=== PATIENT | female | born 1965 | race Caucasian/White ===

== ENCOUNTER 2018-01-18 13:42 | Inpatient (IN) | payer MEDICAID ==
[~2018-01-18] VITALS: Ht 160 cm; Wt 89.5 kg
[2018-01-18 13:57] VITALS: Ht 160 cm; Wt 89.5 kg
[2018-01-18 14:30] LABS: BASOPHIL % 1.1 % (0-2); PLATELET COUNT 177 x10^3mcL (130-400); RED CELL DISTRIBUTION WIDTH 13.3 % (11.5-14.5)
[2018-01-18 14:36] LABS: CALCIUM 9.5 mg/dL (8.5-10.1); CHLORIDE SERUM 95 mmol/L (98-107); CREATININE SERUM 0.8 mg/dL (0.6-1.0); GFR1 > 60 mL/min; GLUCOSE SERUM 345 mg/dL (74-106); POTASSIUM SERUM 4.4 mmol/L (3.5-5.1); SODIUM SERUM 132 mmol/L (136-145)
[2018-01-18 14:40] LABS: ALKALINE PHOSPHATASE 70 U/L (46-116); ALT/SGPT 37 U/L (14-59); AST/SGOT 27 U/L (15-37); BILIRUBIN TOTAL 1.5 mg/dL (0.20-1.00); TOTAL PROTEIN, SERUM 8.1 g/dL (6.4-8.2); URIC ACID 3.9 mg/dL (2.6-6.0)
[2018-01-18 14:41] LABS: CHOLESTEROL 209 mg/dL (<200); HDL CHOLESTEROL 32 mg/dL (40-60)
[2018-01-18 15:51] LABS: CHOLESTEROL/HDL RATIO 6.2
[2018-01-18 15:53] LABS: T3 TOTAL 1.03 ng/mL
[2018-01-18 15:59] LABS: FREE T4 1.01 ng/dL (0.76-1.46); FREE THYROXINE INDEX 2.9 ug/dL (1.4-4.5); T4(THYROXINE) 8.8 ug/dL (4.7-13.3)
[2018-01-18 16:15] VITALS: BP 128/84
[2018-01-18 16:24] LABS: microscopic required? YES; urine erythrocyte NEGATIVE (NEGATIVE)
[2018-01-18 16:26] VITALS: BP 128/84
[2018-01-18 16:28] LABS: AMPHETAMINE QUAL UR NONE DETECTED (NEG <=1000)
[2018-01-18 16:41] VITALS: BP 135/72
[2018-01-18 20:57] VITALS: BP 130/78
[2018-01-19 05:40] VITALS: BP 96/58
[2018-01-19 06:55] LABS: CALCIUM 9.8 mg/dL (8.5-10.1); CARBON DIOXIDE 26.6 mmol/L (21-32); CHLORIDE SERUM 100 mmol/L (98-107); GFR1 > 60 mL/min; GLUCOSE SERUM 340 mg/dL (74-106); MAGNESIUM 2.1 mg/dL (1.8-2.4); PHOSPHOROUS 5.1 mg/dL (2.5-4.9); POTASSIUM SERUM 4.6 mmol/L (3.5-5.1); SODIUM SERUM 136 mmol/L (136-145)
[2018-01-19 06:59] LABS: BASOPHIL % 0.2 % (0-2); PLATELET COUNT 147 x10^3mcL (130-400); RED CELL DISTRIBUTION WIDTH 13.3 % (11.5-14.5)
[2018-01-19 07:03] LABS: BILIRUBIN DIRECT 0.22 mg/dL (0.0-0.2); BILIRUBIN TOTAL 1.2 mg/dL (0.20-1.00)
[2018-01-19 09:15] VITALS: BP 128/76
[2018-01-19 13:21] VITALS: BP 116/55
[2018-01-19 16:37] VITALS: BP 116/62
[2018-01-19 21:30] VITALS: BP 136/77
[2018-01-20 05:53] VITALS: BP 106/50
[2018-01-20 06:58] LABS: BASOPHIL % 0.4 % (0-2); PLATELET COUNT 134 x10^3mcL (130-400); RED CELL DISTRIBUTION WIDTH 13.1 % (11.5-14.5)
[2018-01-20 07:30] LABS: CALCIUM 9.5 mg/dL (8.5-10.1); CARBON DIOXIDE 26.9 mmol/L (21-32); CHLORIDE SERUM 107 mmol/L (98-107); CREATININE SERUM 0.7 mg/dL (0.6-1.0); GFR1 > 60 mL/min; GLUCOSE SERUM 164 mg/dL (74-106); MAGNESIUM 1.9 mg/dL (1.8-2.4); PHOSPHOROUS 4.6 mg/dL (2.5-4.9); POTASSIUM SERUM 4.3 mmol/L (3.5-5.1); SODIUM SERUM 141 mmol/L (136-145)
[2018-01-20 09:42] VITALS: BP 99/37
[2018-01-20] MEDS ORDERED: LEVAQUIN750 MG PO (12:00)
[2018-01-20] MEDS ORDERED: CLA10 PO (12:00)
[2018-01-20] MEDS ORDERED: LIPI10 PO (12:01)
[2018-01-20] MEDS ORDERED: FLE10 PO (12:01)
[2018-01-20] MEDS ORDERED: ECO81 PO (12:02)
[2018-01-20] MEDS ORDERED: ZES5 PO (12:02)
[2018-01-20] MEDS ORDERED: NEU300 PO (12:02)
[2018-01-20] MEDS ORDERED: PULMICORT0.25 MG/2 IH (12:03)
[2018-01-20] MEDS ORDERED: LEXAPRO10 MG PO (12:03)
[2018-01-20] MEDS ORDERED: MONTELUKAST SOD10 M1 PO (12:04)
[2018-01-20] MEDS ORDERED: PEP20 PO (12:05)
[2018-01-20] MEDS ORDERED: GLU500 PO (12:06)
[2018-01-20] MEDS ORDERED: LAC PO (12:06)
[2018-01-20] MEDS ORDERED: MYCP TOP (12:07)
[2018-01-20 13:11] VITALS: BP 99/37
== END 2018-01-20 16:39 | disposition home or self-care (01) | DRG 463 ==
LOC: ED 13:42 → DU 15:09
PROVIDERS: Emergency Medicine; Family Medicine
DX: N39.0 Urinary tract infection, site not specified (principal); E11.40 Type 2 diabetes mellitus with diabetic neuropathy, unspecified; E87.8 Other disorders of electrolyte and fluid balance, not elsewhere classified; M94.0 Chondrocostal junction syndrome [Tietze]; E11.65 Type 2 diabetes mellitus with hyperglycemia; K76.0 Fatty (change of) liver, not elsewhere classified; E87.1 Hypo-osmolality and hyponatremia; E83.39 Other disorders of phosphorus metabolism; J45.909 Unspecified asthma, uncomplicated; M51.16 Intervertebral disc disorders with radiculopathy, lumbar region; G47.30 Sleep apnea, unspecified; E03.9 Hypothyroidism, unspecified; E78.5 Hyperlipidemia, unspecified; E66.9 Obesity, unspecified; Z68.35 Body mass index [BMI] 35.0-35.9, adult; Z88.2 Allergy status to sulfonamides; Z79.84 Long term (current) use of oral hypoglycemic drugs
CPT/HCPCS: 82962; 83880; 84439; 94150; C9113; J0696; J1100; J1815; J1885; J7030; J7620; J7633; Q0092

== ENCOUNTER 2018-04-30 16:53 | Emergency (ER) | payer MEDICAID ==
[~2018-04-30] VITALS: Ht 160 cm; Wt 90.8 kg
[~2018-04-30 16:53] MED LIST: CLA10 PO; ECO81 PO; FLE10 PO; GLU500 PO; LAC PO; LEVAQUIN750 MG PO; LEXAPRO10 MG PO; LIPI10 PO; MONTELUKAST SOD10 M1 PO; MYCP TOP; NEU300 PO; PEP20 PO; PULMICORT0.25 MG/2 IH; ZES5 PO
[2018-04-30 19:55] VITALS: BP 146/106
== END 2018-04-30 19:55 | disposition home or self-care (01) ==
LOC: ED 16:53
DX: S82.891A Other fracture of right lower leg, initial encounter for closed fracture (principal); I10 Essential (primary) hypertension; E11.9 Type 2 diabetes mellitus without complications; J45.909 Unspecified asthma, uncomplicated; X50.1XXA Overexertion from prolonged static or awkward postures, initial encounter; Y93.89 Activity, other specified; Y92.89 Other specified places as the place of occurrence of the external cause; Y99.8 Other external cause status; Z88.2 Allergy status to sulfonamides
CPT/HCPCS: Q0092

== ENCOUNTER 2019-04-08 23:21 | Emergency (ER) | payer MEDICAID ==
[~2019-04-08] VITALS: Ht 160 cm; Wt 80.7 kg
[2019-04-08 23:42] VITALS: BP 152/79; Ht 160 cm; Wt 80.7 kg
== END 2019-04-09 03:03 | disposition left against medical advice (07) ==
LOC: ED 23:21
DX: Z53.21 Procedure and treatment not carried out due to patient leaving prior to being seen by health care provider (principal)